=== PATIENT | male | born 1950 | race Caucasian/White ===

== ENCOUNTER → 2018-06-11 | Outpatient (CLI) | payer OTHER ==
[~2018-06-11] MED LIST: REGADENOSON 0.4 MG/5 ML SYR IVP ONE
--- NOTE | 2018-06-11 12:38 | CPR ---
DATE OF PROCEDURE: 06/11/2018 PROCEDURE: Lexiscan nuclear stress test. INDICATION: The patient has a history of coronary artery disease requiring stenting 2 years ago. He had a recent CVA related to an 80% right carotid stenosis with plans for a carotid endarterectomy ne xt week. He is very active individual and denies any exertional chest discomfort. PROCEDURE IN DETAIL: Consent was obtained and the patient was placed on continuous telemetry. His r esting EKG reveals normal sinus rhythm with a heart rate of 71, CO interval of 181, QRS duration of 1 06, and a QTc of 445. He has a nonspecific interventricular conduction delay and nonspecific ST, T-w ave changes. The patient was infused with Lexiscan and complained of some mild shortness of breath. He was monitored on telemetry and remained in normal sinus rhythm with rare PVCs. There were no sig nificant ST, T-wave changes. His blood pressure at rest was 130/84 and peaked at 160/80. At the neftali e of discontinuation of the test, his blood pressure was down to 150/78. He was given caffeine in e recovery phase with resolution of his symptoms. PLAN: Await nuclear images. /[id number]/MODL
== END ==
LOC: FIMAGING 10:47
PROVIDERS: ATTEND Internal Medicine Cardiovascular Disease
DX: I25.10 Atherosclerotic heart disease of native coronary artery without angina pectoris (principal); Z95.5 Presence of coronary angioplasty implant and graft; I77.9 Disorder of arteries and arterioles, unspecified; I63.9 Cerebral infarction, unspecified
CPT/HCPCS: 78452; 93017; A9500; J2785

== ENCOUNTER 2018-06-14 06:51 | Observation (INO) | payer OTHER ==
[2018-06-14] MEDS ORDERED: BUPIVACAINE 0.5% 30 ML SDV ONE (07:07)
[2018-06-14] MEDS ORDERED: THROMBIN (BOVINE) 20,000 UNIT SPRAY TP ONE (07:07)
[2018-06-14] MEDS ORDERED: PROTAMINE SULFATE 50 MG/5 ML VIAL IVP ONE (07:08)
[2018-06-14] MEDS ORDERED: ceFAZolin 2 GM/DEXTROSE 100 ML IV ONE (07:11)
[2018-06-14] MEDS ORDERED: LR 1,000 ML IV ONE (07:12)
[2018-06-14] MEDS ORDERED: LIDOCAINE 1% 2 ML INJ ID PRN (07:12)
--- NOTE | 2018-06-14 07:15 | PDHPUP ---
History & Physical Update H&P update statement: This history and physical update is based on an assessment of the patient which was completed after admission or registration (within 24 hours), but prior to the surgery/procedure. H&P update: H&P reviewed & patient examined, changes noted (S/p heart catheterization)
--- NOTE | 2018-06-14 07:49 | PDANEPAE ---
ANE History of Present Illness 67 with bilateral carotid stenosis, s/p stroke with recovered right side weakness after TPA 2 weeks ago ANE Past Medical History - Cardiovascular History Hx Hypertension: Yes Hx Arrhythmias: No Hx Chest Pain: Yes Hx Coronary Artery / Peripheral Vascular Disease: Yes Hx CHF / Valvular Disease: Yes Hx Palpitations: No Cardiovascular History Comment: HYPERLIPIDEMIA. CARIOMYOPATHY. PVCs IN PAST. AORTIC REGURGITATION - Pulmonary History Hx COPD: No Hx Asthma/Reactive Airway Disease: No Hx Recent Upper Respiratory Infection: No Hx Oxygen in Use at Home: No Hx Sleep Apnea: Yes Sleep Apnea Screening Result - Last Documented: Positive Pulmonary History Comment: POS SLEEP APNEA - W/CPAP - INSTRUCTED TO BRING CPAP - Neurologic History Hx Cerebrovascular Accident: Yes Hx Seizures: No Hx Dementia: No Neurologic History Comment: 06/06/18- [place] tPA -[facility] - R SIDE WEAKNESS - NO RESIDUAL - ON PLAVIX - Endocrine History Hx Diabetes: Yes Hypothyroid: No Hyperthyroid: No Obesity: yes, mild Endocrine History Comment: INSULIN & METFORMIN - Renal History Hx Renal Disorders: No - Liver History Hx Hepatic Disorders: No - Neurological & Psychiatric Hx Hx Neurological and Psychiatric Disorders: No - Cancer History Hx Cancer: No - Congenital Disorder History Hx Congenital Disorders: No - GI History GERD: no (cardiac cleared, EF 23%) Hx Gastrointestinal Disorders: No - Other Health History Other Health History: SEASONAL RASH IN SUMMER. BRUISES EASILY - Chronic Pain History Chronic Pain: No - Surgical History Prior Surgeries: SHOULDER SURG. STENT CORONARY X1 ANE Review of Systems Review of systems is: negative Review of Systems: - Exercise capacity METS (RN): 4 METS ANE Patient History - Allergies Allergies/Adverse Reactions: atenolol Allergy (Verified 06/13/18 11:49) Vomiting - Home Medications Home Medications: Carvedilol [Coreg (*)] 50 mg PO BIDMEAL #0 01/25/16 [Last Taken 01/25/16 04:00] Furosemide [Lasix 20 MG (*)] 20 mg PO DAILY #0 01/25/16 [Last Taken 01/24/16 08: 00] Insulin Detemir [Levemir] 40 - 60 unit SQ DAILY #0 01/25/16 [Last Taken 17:00] Losartan Potassium [Cozaar 50 mg (*)] 50 mg PO DAILY #0 01/25/16 [Last Taken 04:00] Nitroglycerin [Nitrostat 0.4 mg (*)] 0.4 mg SL Q5M PRN #0 01/25/16 [Last Taken 01/18/16] Simvastatin [Zocor] 20 mg PO HS #0 01/25/16 [Last Taken 01/25/16 04:00] Spironolactone [Aldactone 25 MG (*)] 25 mg PO BID #0 01/25/16 [Last Taken 04:00] metFORMIN HCL [Glucophage 500 mg (*)] 1,000 mg PO BIDMEAL #0 01/25/16 [Last Taken 01/24/16 20:00] Clopidogrel Bisulfate [Plavix (*)] 75 mg PO DAILY 06/13/18 [Last Taken Unknown] - Smoking Hx Smoking Status: Current every day smoker - Family Anes Hx Family Hx Anesthesia Complications: NEG ANE Labs/Vital Signs - Vital Signs Height: 177.8 cm Weight: 95.254 kg ANE Physical Exam - Airway Neck exam: FROM Mallampati Score: Class 3 Mouth exam: normal dental/mouth exam, dentures - Pulmonary Pulmonary: no respiratory distress, clear to auscultation - Cardiovascular Cardiovascular: regular rate and rhythym, no murmur, rub, or gallop - ASA Status ASA Status: IV ANE Anesthesia Plan Anesthesia Plan: general endotracheal anesthesia Lines/Monitors: arterial line
[2018-06-14 07:51] LABS: PLATELET COUNT 180 10^3/uL (150-400)
[2018-06-14] MEDS ORDERED: fentaNYL 100 MCG/2 ML INJ ONE ×3 (08:29→11:57)
[2018-06-14] MEDS ORDERED: ROCURONIUM 50 MG/5 ML VIAL ONE ×2 (08:30→09:34)
[2018-06-14] MEDS ORDERED: MIDAZOLAM 2 MG/2 ML VIAL ONE (08:30)
[2018-06-14] MEDS ORDERED: LIDOCAINE 2% 2 ML INJ ONE (08:30)
[2018-06-14] MEDS ORDERED: PROPOFOL 200 MG/20 ML VIAL ONE (08:30)
[2018-06-14] MEDS ORDERED: DEXAMETHASONE 4 MG/ML VIAL ONE ×2 (08:30)
[2018-06-14] MEDS ORDERED: PHENYLEPHRINE HCL 100 MCG/ML SYR ONE (09:18)
[2018-06-14] MEDS ORDERED: LABETALOL HCL 5 MG/ML 20 ML MDV IVP PRN (10:16)
[2018-06-14] MEDS ORDERED: fentaNYL 100 MCG/2 ML INJ IVP PRN (10:16)
[2018-06-14] MEDS ORDERED: HYDROmorphONE/DILAUDID 2 MG/ML INJ IVP PRN (10:16)
[2018-06-14] MEDS ORDERED: MEPERIDINE 25 MG/0.5 ML AMP IVP PRN (10:16)
[2018-06-14] MEDS ORDERED: NALOXONE HCL 0.4 MG/ML INJ IVP PRN (10:16)
[2018-06-14] MEDS ORDERED: PROMETHAZINE HCL 25 MG/ML INJ IVP PRN (10:16)
[2018-06-14] MEDS ORDERED: ONDANSETRON 4 MG/2 ML VIAL ONE (10:26)
[2018-06-14] MEDS ORDERED: SUGAMMADEX SODIUM 200 MG/2 ML VIAL IVP ONE (10:27)
[2018-06-14] MEDS ORDERED: NITROGLYCERIN 0.4 MG BTL SL PRN (11:00)
[2018-06-14] MEDS ORDERED: HYDROmorphONE/DILAUDID 1 MG/ML INJ IVP PRN (11:01)
[2018-06-14] MEDS ORDERED: ACETAMINOPHEN 325 MG TAB PO PRN (11:02)
[2018-06-14] MEDS ORDERED: oxyCODONE IR 5 MG TAB PO PRN (11:02)
[2018-06-14] MEDS ORDERED: ONDANSETRON 4 MG/2 ML VIAL IVP PRN (11:03)
[2018-06-14] MEDS ORDERED: ONDANSETRON DISINTEGRATING 4 MG TAB PO PRN (11:03)
--- NOTE | 2018-06-14 11:06 | POSTOPPROG ---
Post Op Note Date of Operation: 06/14/18 Surgeon: Alex Cash [employer] Tutor: Nayan Anesthesiologist: Jennyfer Anesthesia: GET(General Endotracheal) Pre-op Diagnosis: Bilateral critical stenosis Post-op Diagnosis: same Indication: CVA Procedure: L CEA with EEG monitoring Findings: Excellent backflow, critical stenosis with calcified plaque, no eeg changes Inf/Abcess present in the surg proc area at time of surgery?: No Depth: Deep Incisional (Fascial) EBL: 50-100 Specimen(s): L carotid plaque L carotid LN
[2018-06-14] MEDS ORDERED: INSULIN REGULAR HUMAN 100 UNIT/ML UNIT ONE (11:18)
[2018-06-14] MEDS ORDERED: INSULIN REGULAR HUMAN 100 UNIT/ML UNIT IV ONE (11:20)
--- NOTE | 2018-06-14 11:34 | POSTANESTH ---
Post Anesthetic Evaluation Cardiovascular Status: Normal, Stable Respiratory Status: Normal, Stable Level of Consciousness/Mental Status: Can Participate in Eval Pain Control: Adequate, Prn Tx Ordered Nausea/Vomiting Control: Adequate, Prn Tx Ordered Complications Possibly Related to Anesthesia: None Noted
--- NOTE | 2018-06-14 16:30 | ASMTCMCOM ---
CM Note CM Note Notes: Pt admitted today for carotid endararterectomy with general surgery. Pt has had a recent stroke. Pt is and lives in [place]. Daughter Zee is involved. CM needs to be determined. CM will follow. D/C Plan: TBD Date Signed: 06/14/2018 04:29 PM Electronically Signed By:Marci Grady
[2018-06-14] MEDS: metFORMIN HCL 500 MG TAB PO SCH (18:20)
[2018-06-14] MEDS: CARVEDILOL 25 MG TAB PO SCH (18:20)
[2018-06-14] MEDS: NICOTINE 21 MG/24 HR PATCH TD SCH (19:01)
[2018-06-14] MEDS ORDERED: guaiFENesin 600 MG TAB.ER PO PRN (20:28)
[2018-06-14] MEDS ORDERED: D50W 25 GM/50 ML SYR IVP PRN (20:29)
[2018-06-14] MEDS: INSULIN REGULAR, HUMAN 100 UNIT/1 ML VIAL STANDARD SC SCH (20:39)
[2018-06-14] MEDS: SPIRONOLACTONE 25 MG TAB PO SCH (20:40)
[2018-06-14] MEDS ORDERED: ATORVASTATIN CALCIUM 10 MG TAB PO SCH (21:00)
[2018-06-14] MEDS ORDERED: INSULIN GLARGINE 100 UNITS/ML UNIT SC SCH (21:00)
--- NOTE | 2018-06-14 22:42 | GOP ---
DATE OF OPERATION: 06/14/2018 SURGEON: Alex Cash MD PERISHABLE FRUIT INSPECTOR: Claire Spicer, Nurse Practitioner ANESTHESIA: General endotracheal anesthesia. ANESTHESIOLOGIST: Kristin Burger MD PREOPERATIVE DIAGNOSIS: Critical left carotid stenosis with cerebrovascular accident. POSTOPERATIVE DIAGNOSIS: Critical left carotid stenosis with cerebrovascular accident. PROCEDURE PERFORMED: Left carotid endarterectomy with EEG monitoring and intraoperative shunt; deep cervical node biopsy. FINDINGS: Patient was found to have a near-total occlusion of the origin of his internal carotid art andre. He had reasonably good backflow from the internal carotid artery. He had no EEG changes during the procedure. The plaque itself was a centimeter and half in length and was quite ulcerated and ne crotic and nearly completely occlusive. ESTIMATED BLOOD LOSS: Less than 25 mL. DESCRIPTION OF PROCEDURE: Patient was taken to the operating room where he received satisfactory gen eral endotracheal anesthesia by Dr. Kojo Burger. He was placed in supine position and prepped and draped in the usual sterile fashion. He had been systemically heparinized prior to induction of anesthesia . An incision was made along the anterior border of the sternocleidomastoid muscle. Dissection exte nded down through the subcutaneous tissue. Some superficial veins were ligated and divided. The com mon facial vein was multiply ligated and divided, and dissection extended down through the superficia l fascia to the carotid arterial tree, which was then isolated with vessel loops including the internal controls consultant al and external carotids, and the common carotid, as well as a loop around the inferior thyroid arter y. After adequate exposure was achieved, this required resection with some cervical lymph nodes, i ch were sent with the specimen as well. After adequate exposure was achieved, additional heparin was given and then the vessels were occluded with the vessel loops. An incision was made in the common carotid artery, extended up through the thick plaque into the internal carotid artery. Adequate bloo d flow was seen coming back through the internal carotid; so, an expeditious endarterectomy was then done with a good feathered distal end and the plaque was removed. A shunt was then immediately place d and flow was reestablished through the shunt. The endarterectomy site was cleaned up by removing a ll debris and irrigating the lumen. The distal end was quite secure. A Dacron patch was then placed over the artery and sutured in place with a Hemashield 7 suture. The suture line was nearly complet ed and the shunt was then cross clamped and removed. All vessels were flushed. The suture line was completed and flow was then reestablished through the external carotid and then back through the inte rnal carotid artery. He tolerated the procedure well. There were no EEG changes. The wound was irr igated. Hemostasis was assured. Heparin was reversed with protamine. The wound was sprayed with so me topical thrombin, closed in layers using 3-0 Vicryl for the cervical fascia, 3-[address] atysma, 4-0 Monocryl subcuticular stitch for the skin. The posterior flap was infiltrated with 0.5% Marcaine. He tolerated procedure well, taken to the recovery room in good condition, moving all extr emities. There were no complications. /[id number]/MODL
[2018-06-15] MEDS ORDERED: CLOPIDOGREL BISULFATE 75 MG TAB PO SCH (09:00)
[2018-06-15] MEDS ORDERED: FUROSEMIDE 20 MG TAB PO SCH (09:00)
[2018-06-15] MEDS ORDERED: LOSARTAN POTASSIUM 50 MG TAB PO SCH (09:00)
[2018-06-15] MEDS ORDERED: INSULIN DETEMIR SQ SCH (09:00)
[2018-06-15] MEDS: metFORMIN HCL 500 MG TAB PO SCH (09:06)
[2018-06-15] MEDS: CARVEDILOL 25 MG TAB PO SCH (09:07)
[2018-06-15] MEDS: INSULIN REGULAR, HUMAN 100 UNIT/1 ML VIAL STANDARD SC SCH (09:08)
[2018-06-15] MEDS: SPIRONOLACTONE 25 MG TAB PO SCH (09:08)
[2018-06-15 09:09] VITALS: BP 130/81
[2018-06-15] MEDS: NICOTINE 21 MG/24 HR PATCH TD SCH (09:24)
== END 2018-06-15 12:17 | disposition home or self-care (01) ==
LOC: INTOOBSV 06:51 → F2W 06:51 → F2N 12:33
PROVIDERS: ADMIT Surgery; ATTEND Surgery
DX: I65.22 Occlusion and stenosis of left carotid artery (principal); I25.10 Atherosclerotic heart disease of native coronary artery without angina pectoris; F17.210 Nicotine dependence, cigarettes, uncomplicated; I35.1 Nonrheumatic aortic (valve) insufficiency; I11.0 Hypertensive heart disease with heart failure; I50.9 Heart failure, unspecified; E11.9 Type 2 diabetes mellitus without complications; E78.5 Hyperlipidemia, unspecified; I42.9 Cardiomyopathy, unspecified; G47.30 Sleep apnea, unspecified; I25.2 Old myocardial infarction; Z79.4 Long term (current) use of insulin; Z79.82 Long term (current) use of aspirin; Z86.73 Personal history of transient ischemic attack (TIA), and cerebral infarction without residual deficits; Z82.49 Family history of ischemic heart disease and other diseases of the circulatory system
CPT/HCPCS: 35301; 88304; 88305; 88311; C1768; J0690; J1100; J1644; J1815; J2250; J2370; J2405; J2704; J2720; J3010

== ENCOUNTER 2018-07-10 06:00 | Inpatient (IN) | payer OTHER ==
[2018-07-10] MEDS ORDERED: LIDOCAINE 1% 2 ML INJ ID PRN (06:19)
[2018-07-10] MEDS ORDERED: LR 1,000 ML IV ONE (06:19)
[2018-07-10] MEDS ORDERED: fentaNYL 250 MCG/5 ML INJ ONE (06:53)
[2018-07-10] MEDS ORDERED: MIDAZOLAM 2 MG/2 ML VIAL ONE (06:53)
[2018-07-10] MEDS ORDERED: PROPOFOL 200 MG/20 ML VIAL ONE (06:53)
--- NOTE | 2018-07-10 06:56 | PDANEPAE ---
ANE History of Present Illness carotid stenosis and stroke ANE Past Medical History - Cardiovascular History Hx Hypertension: Yes Hx Arrhythmias: No Hx Chest Pain: Yes Hx Coronary Artery / Peripheral Vascular Disease: Yes Hx CHF / Valvular Disease: Yes Hx Palpitations: No Cardiovascular History Comment: HYPERLIPIDEMIA. CARIOMYOPATHY. PVCs IN PAST. AORTIC REGURGITATION - Pulmonary History Hx COPD: No Hx Asthma/Reactive Airway Disease: No Hx Recent Upper Respiratory Infection: No Hx Oxygen in Use at Home: No Hx Sleep Apnea: Yes Sleep Apnea Screening Result - Last Documented: Positive Pulmonary History Comment: POS SLEEP APNEA - W/CPAP - INSTRUCTED TO BRING CPAP - Neurologic History Hx Cerebrovascular Accident: Yes Hx Seizures: No Hx Dementia: No Neurologic History Comment: 06/06/18- [place] tPA -[facility] - R SIDE WEAKNESS - NO RESIDUAL - ON PLAVIX - Endocrine History Hx Diabetes: Yes Hypothyroid: No Hyperthyroid: No Obesity: yes, mild Endocrine History Comment: type 2 BS 131 - Renal History Hx Renal Disorders: No - Liver History Hx Hepatic Disorders: No - Neurological & Psychiatric Hx Hx Neurological and Psychiatric Disorders: No - Cancer History Hx Cancer: No - Congenital Disorder History Hx Congenital Disorders: No - GI History GERD: no Hx Gastrointestinal Disorders: No - Other Health History Other Health History: SEASONAL RASH IN SUMMER. BRUISES EASILY - Chronic Pain History Chronic Pain: No - Surgical History Prior Surgeries: 06/14/18 left CEA with Shailesh. SHOULDER SURG. STENT CORONARY X1 ANE Review of Systems Review of systems is: negative Review of Systems: - Exercise capacity METS (RN): 4 METS ANE Patient History - Allergies Allergies/Adverse Reactions: atenolol Allergy (Verified 07/09/18 12:38) Vomiting - Home Medications Home medications: home medication list seen and reviewed Home Medications: Carvedilol [Coreg (*)] 50 mg PO BIDMEAL #0 01/25/16 [Last Taken 07/09/18] Furosemide [Lasix 20 MG (*)] 20 mg PO DAILY #0 01/25/16 [Last Taken 07/09/18] Losartan Potassium [Cozaar 50 mg (*)] 50 mg PO DAILY #0 01/25/16 [Last Taken 05/17] Nitroglycerin [Nitrostat 0.4 mg (*)] 0.4 mg SL Q5M PRN #0 01/25/16 [Last Taken 06/19/18] Simvastatin [Zocor] 20 mg PO HS #0 01/25/16 [Last Taken 07/09/18] Spironolactone [Aldactone 25 MG (*)] 25 mg PO BID #0 01/25/16 [Last Taken ] metFORMIN HCL [Glucophage 500 mg (*)] 1,000 mg PO BIDMEAL #0 01/25/16 [Last Taken 07/08/18] Clopidogrel Bisulfate [Plavix (*)] 75 mg PO DAILY 06/13/18 [Last Taken 07/08/18] Insulin Glargine,Hum.rec.anlog [Lantus Solostar] 50 units SC HS 06/14/18 [Last Taken 07/09/18] - NPO status NPO Status: no food or drink >8 hours NPO Since - Liquids (Date): 07/10/18 NPO Since - Liquids (Time): 04:20 NPO Since - Solids (Date): 07/09/18 NPO Since - Solids (Time): 22:00 - Anes Hx Anes Hx: no prior problems - Smoking Hx Smoking Status: Current every day smoker - Alcohol Use Alcohol Use: Rarely - Family Anes Hx Family Anes Hx: none Family Hx Anesthesia Complications: none ANE Labs/Vital Signs - Vital Signs Blood Pressure: 111/65 Heart Rate: 65 Respiratory Rate: 18 O2 Sat (%): 95 Height: 177.8 cm Weight: 95.254 kg ANE Physical Exam - Airway Neck exam: FROM Mallampati Score: Class 2 Mouth exam: normal dental/mouth exam, dentures - Pulmonary Pulmonary: no respiratory distress, clear to auscultation - Cardiovascular Cardiovascular: regular rate and rhythym, no murmur, rub, or gallop - ASA Status ASA Status: IV ANE Anesthesia Plan Anesthesia Plan: general endotracheal anesthesia Lines/Monitors: arterial line
[2018-07-10] MEDS ORDERED: LIDOCAINE 2% 5 ML SDV ONE (06:59)
[2018-07-10] MEDS ORDERED: SUCCINYLCHOLINE CHLORIDE 200 MG/10 ML SYR IVP ONE (07:00)
[2018-07-10] MEDS ORDERED: THROMBIN (BOVINE) 20,000 UNIT SPRAY TP ONE (07:04)
[2018-07-10] MEDS ORDERED: PROTAMINE SULFATE 50 MG/5 ML VIAL IVP ONE (07:04)
[2018-07-10] MEDS ORDERED: BUPIVACAINE 0.5% 30 ML SDV ONE (07:05)
--- NOTE | 2018-07-10 07:12 | PDHPUP ---
History & Physical Update H&P update statement: This history and physical update is based on an assessment of the patient which was completed after admission or registration (within 24 hours), but prior to the surgery/procedure. H&P update: H&P reviewed & patient examined, no change in patient's condition since H&P completed
[2018-07-10] MEDS ORDERED: ceFAZolin 2 GM/DEXTROSE 100 ML IV ONE (07:30)
[2018-07-10] MEDS ORDERED: ePHEDrine SULFATE 25 MG/5 ML SYR ONE ×2 (07:46→08:22)
[2018-07-10] MEDS ORDERED: PHENYLEPHRINE HCL 100 MCG/ML SYR ONE (08:01)
[2018-07-10] MEDS ORDERED: ROCURONIUM 50 MG/5 ML VIAL ONE (08:11)
[2018-07-10] MEDS ORDERED: LABETALOL HCL 20 MG/4 ML INJ IVP PRN (08:35)
[2018-07-10] MEDS ORDERED: HYDROCODONE/APAP 5/325 TAB PO PRN (08:35)
[2018-07-10] MEDS ORDERED: PROMETHAZINE HCL 25 MG/ML INJ IVP PRN (08:35)
[2018-07-10] MEDS ORDERED: NALOXONE HCL 0.4 MG/ML INJ IVP PRN (08:35)
[2018-07-10] MEDS ORDERED: ONDANSETRON 4 MG/2 ML VIAL ONE (08:58)
[2018-07-10] MEDS ORDERED: SUGAMMADEX SODIUM 200 MG/2 ML VIAL IVP ONE (09:05)
[2018-07-10] MEDS ORDERED: ENALAPRILAT DIHYDRATE 1.25 MG/ML VIAL IVP PRN (09:21)
[2018-07-10] MEDS ORDERED: HYDROmorphONE/DILAUDID 1 MG/ML INJ IVP PRN (09:21)
[2018-07-10] MEDS ORDERED: D50W 25 GM/50 ML SYR IVP PRN (09:25)
--- NOTE | 2018-07-10 09:28 | POSTOPPROG ---
Post Op Note Date of Operation: 07/10/18 Surgeon: Alex Cash Behavioral Health Assistant: Betty Alexandre Anesthesiologist: Kristin Burger Anesthesia: GET(General Endotracheal) Pre-op Diagnosis: critical R carotid stenosis, hx L CEA, hx CVA Post-op Diagnosis: same Procedure: R CEA c EEG monitoring, patch closure, cervical node bx Findings: tight ulcerated plaque, benign appearing nodes overlying artery Inf/Abcess present in the surg proc area at time of surgery?: No EBL: 25cc Complications: none Specimen(s): cervical nodes and plaque to pathology
[2018-07-10] MEDS ORDERED: NS 1,000 ML IV SCH (09:30)
--- NOTE | 2018-07-10 09:42 | PDMN ---
Medical Necessity Medical necessity: 68 yo s/p R carotid endarterectomy, [facility] [place] S300 CEA, IP only , CPT 46575
[2018-07-10] MEDS ORDERED: fentaNYL 100 MCG/2 ML INJ ONE (09:55)
[2018-07-10] MEDS: fentaNYL 100 MCG/2 ML INJ IVP PRN ×4 (09:56→10:24)
[2018-07-10] MEDS: NICOTINE 14 MG/24 HR PATCH TD SCH (11:03)
[2018-07-10] MEDS ORDERED: INSULIN LISPRO 100 UNIT/ML SC SCH (12:00)
[2018-07-10] MEDS: metFORMIN HCL 500 MG TAB PO SCH (17:38)
[2018-07-10] MEDS: SPIRONOLACTONE 25 MG TAB PO SCH (17:38)
[2018-07-10] MEDS: CARVEDILOL 25 MG TAB PO SCH (17:39)
[2018-07-10] MEDS ORDERED: CARVEDILOL 25 MG TAB PO SCH (18:00)
[2018-07-10] MEDS ORDERED: metFORMIN HCL 500 MG TAB PO SCH (18:00)
[2018-07-10] MEDS: DOCUSATE SODIUM 100 MG CAP PO SCH (20:19)
[2018-07-10] MEDS: OXYCODONE/APAP 5/325 TAB PO PRN (20:21)
[2018-07-10] MEDS ORDERED: INSULIN GLARGINE HUM REC ANLOG SC SCH (21:00)
[2018-07-10] MEDS ORDERED: SIMVASTATIN 20MG PO SCH (21:00)
[2018-07-10] MEDS ORDERED: SPIRONOLACTONE 25 MG TAB PO SCH (21:00)
[2018-07-11] MEDS: OXYCODONE/APAP 5/325 TAB PO PRN (05:36)
[2018-07-11 08:34] VITALS: BP 118/99
[2018-07-11] MEDS: CARVEDILOL 25 MG TAB PO SCH (08:42)
[2018-07-11] MEDS: DOCUSATE SODIUM 100 MG CAP PO SCH (08:42)
[2018-07-11] MEDS: metFORMIN HCL 500 MG TAB PO SCH (08:48)
[2018-07-11] MEDS: NICOTINE 14 MG/24 HR PATCH TD SCH (08:48)
[2018-07-11] MEDS: SPIRONOLACTONE 25 MG TAB PO SCH (08:49)
[2018-07-11] MEDS ORDERED: LOSARTAN POTASSIUM 50 MG TAB PO SCH ×2 (09:00)
[2018-07-11] MEDS ORDERED: ENOXAPARIN 40 MG/0.4 ML SYR SC SCH (09:00)
[2018-07-11] MEDS ORDERED: ASPIRIN 325 MG TAB PO SCH (09:00)
[2018-07-11] MEDS ORDERED: FUROSEMIDE 20 MG TAB PO SCH ×2 (09:00)
--- NOTE | 2018-07-11 09:20 | GDS ---
DISCHARGE DIAGNOSES: 1. Critical right carotid stenosis. 2. Recent history of left carotid endarterectomy. 3. Recent cerebrovascular accident. OTHER DIAGNOSES: Include coronary artery disease, sleep apnea, diabetes. PROCEDURES: Right carotid endarterectomy with electroencephalogram monitoring, patch closure, cervic al lymph node biopsy. INTRAOPERATIVE FINDINGS: Patient was found to have a tight ulcerated plaque. He had benign-appearin g nodes overlying the artery. There were no EEG changes and he had good back flow. HOSPITAL COURSE: The patient is a 68-year-old male who recently underwent a left carotid endarterect bhanu with Dr. Cash and now was admitted with critical right carotid stenosis. He underwent right car otid endarterectomy. The procedure was uncomplicated, and he tolerated it well. The patient's postoperative course was uneventful. He was kept in the ICU. The patient requested to take his home medicines. These were reviewed by Pharmacy and administered accordingly. He had no n eurological changes and his blood pressure remained stable. As he was placed on Plavix after his str vickie and had been off it sometime after his cardiac stents, we discontinued the Plavix and started him on an adult aspirin. DISCHARGE INSTRUCTIONS: Patient was discharged to home in stable condition with plans for early outp atient followup. Limitations in wound care were discussed. Please see MAR for accurate home medicin es. /[id number]/MODL
== END 2018-07-11 10:50 | disposition home or self-care (01) | DRG 39 ==
LOC: F3N 06:00 → F2N 10:37
PROVIDERS: ADMIT Surgery; ATTEND Surgery
PROC: 03CK0ZZ Extirpation of Matter from Right Internal Carotid Artery, Open Approach (ICD-10-PCS; principal; 2018-07-10 07:15)
DX: I65.21 Occlusion and stenosis of right carotid artery (principal); I25.10 Atherosclerotic heart disease of native coronary artery without angina pectoris; G47.30 Sleep apnea, unspecified; E11.9 Type 2 diabetes mellitus without complications; Z86.73 Personal history of transient ischemic attack (TIA), and cerebral infarction without residual deficits; E78.5 Hyperlipidemia, unspecified; I10 Essential (primary) hypertension
CPT/HCPCS: C1768; J0330; J0690; J1644; J2250; J2370; J2405; J2704; J2720; J3010

== ENCOUNTER → 2018-07-19 | Outpatient (CLI) | payer OTHER | LOC: BHFA 10:00 → BHLMT 10:00 | PROVIDERS: ATTEND Internal Medicine Cardiovascular Disease | DX: I25.10 Atherosclerotic heart disease of native coronary artery without angina pectoris (principal); I42.9 Cardiomyopathy, unspecified; E11.9 Type 2 diabetes mellitus without complications | CPT/HCPCS: 93306-PO ==